=== PATIENT | female | born 1995 | race Caucasian/White ===

== ENCOUNTER 2016-03-27 17:48 | Emergency (ER) | payer SELFPAY ==
[~2016-03-27] VITALS: Ht 154.9 cm; Wt 80.7 kg
[2016-03-27 17:50] VITALS: BP 111/82; PULSE 75; RESP 16; TEMP 98.6; O2SAT 100
[2016-03-27] MEDS ORDERED: MAGICPED SWISH-SWAL (19:03)
[2016-03-27] MEDS ORDERED: HYDR-3533 PO (19:03)
[2016-03-27] MEDS ORDERED: PERI0.126 SWISH-SPIT (19:03)
[2016-03-27] MEDS ORDERED: PENI500T PO (19:03)
--- NOTE | 2016-03-27 19:09 | PD ---
HPI Chief Complaint: Oral / Dental Pain or Problem Time Seen by Provider: 19:05 Travel History International Travel<30 days: No Contact w/Intl Traveler<30days: No Traveled to known affect area: No History of Present Illness HPI Patient's 20-year-old female history of peptic ulcer disease and brain cancer in remission presenting with dental pain. She states she has "bad teeth" from radiation treatments in 2004. She's had pain and swelling in the right lower tooth last 2 days. Denies any bleeding or discharge. Denies any swelling internally with states she feels like it's on the outside of the jaw. She denies fever and chills. She denies difficulty swallowing or breathing. He denies trauma or injury to the teeth. She has used a few OTC NSAIDs and Tylenol which have helped but cannot take NSAIDs long-term. Denies any abdominal pain. She denies current . PFSH Past Medical History Cancer: Yes (Brain tumors) Chemotherapy: Yes Radiation Therapy: Yes Tetanus Vaccination: > 5 Years Influenza Vaccination: No ?: Not LMP: Never had Social History Alcohol Use: No Tobacco Use: No Substance Use: No Allergies-Medications (Allergen,Severity, Reaction): Coded Allergies: Bactrim (Verified Allergy, Severe, Rash, 03/27/16) Macrobid (Verified Adverse Reaction, Severe, "Passed out", 03/27/16) Reported Meds & Prescriptions Reported Meds & Active Scripts Active Magic Mouthwash Pediatric/Adult Liq (Lidocaine/Diphenhydr/Alum/Mg/Simeth) 60 Ml Susp 10 Ml SWISH-SWAL ACHS Each 5 mL contains: Diphenydramine 4.5 mg,Viscous Lidocaine 2% 10 mg, Maalox Advanced Regular Strength 2.7 ml (Aluminum hydroxide 108 mg, Magnesium hydroxide 108 mg and Simethicone 10.8 mg) Peridex Liq (Chlorhexidine Gluconate (Mouth) Liq) 0.12% Soln 15 Ml SWISH-SPIT BID Penicillin V Potassium 500 Mg Tab 500 Mg PO Q6H 10 Days Lortab (Hydrocodone-Acetaminophen) 5-325 Mg Tab 1 Tab PO Q6H PRN Review of Systems Except as stated in HPI: all other systems reviewed are Neg Physical Exam Narrative GENERAL: Well-developed and well-nourished adult female in no acute distress. SKIN: Warm and dry. Good turgor without tenting. HEAD: Normocephalic and atraumatic. EYES: PERRL bilaterally, 5mm. EOMI bilaterally. No injection or icterus present. No proptosis. Lids without edema or erythema. ENT: Overall poor oral dentition. Some hypertrophy and chronic erythema of the gingiva chronically per patient. Around tooth #29 and 30 there is some erythema and edema with tenderness palpation on the gingiva on the buccal side. No induration or fluctuance. The teeth are not loose but tooth #30 does have significant amount caries and tooth pieces absent. No buccal or sublingual masses. Buccal mucosa pink and moist. Oropharynx free of erythema, tonsillar hypertrophy, masses, swelling, asymmetry and exudates. Uvula midline and airway patent. NECK: Supple, no midline tenderness, crepitus or step-offs. Trachea midline, no JVD. No cervical or facial lymphadenopathy. No masses or induration palpated. CARDIOVASCULAR: Regular rate and rhythm without murmurs, rubs, clicks or gallops. RESPIRATORY: Clear to auscultation bilaterally with symmetrical rise and fall, no distress or use of accessory muscles. GASTROINTESTINAL: Non-tender, non-distended. Normal bowel sounds all 4 quadrants. No masses or organomegaly present. MUSCULOSKELETAL: No gait disturbances. Patient freely moving all four extremities spontaneously. Extremities without clubbing, cyanosis, or edema. No obvious deformities. NEUROLOGIC: CN II-XII grossly intact. Awake and alert. Motor grossly within normal limits. Normal speech. PSYCHIATRIC: Appropriate mood and affect; insight and judgment normal. Data Data Last Documented VS Vital Signs Date Time Temp Pulse Resp B/P Pulse Ox O2 Delivery O2 Flow Rate FiO2 03/27/16 17:50 98.6 75 16 111/82 100 Orders Acetamin-Hydrocod 325-7.5 Mg (Holder 7.5 (03/27/16 19:15) MDM Medical Decision Making Medical Screen Exam Complete: Yes Emergency Medical Condition: Yes Differential Diagnosis Caries versus Periapical abscess versus cellulitis versus Tooth Fracture vs less likely Ludwigs Angina Narrative Course Patient is a 20-year-old female with a history of PUD and poor dentition secondary to radiation treatments for brain tumor that is in remission presenting with history and physical suggestive of early periapical abscess. She is afebrile nontoxic appearing. No evidence of Robert's angina on exam. There is no drainable area. Patient was given Lortab here if she cannot take NSAIDs. Prescription for pen VK, Peridex mouthwash and Lortab.See discharge paperwork for further instructions. The plan was discussed with the patient who acknowledged their understanding and agreement. Reinforced the follow-up with primary care is critically important. Patient instructed on emergent conditions that should prompt return to ED. Diagnosis Primary Impression: Periapical abscess Additional Impression: Dental caries Patient Instructions: Dental Abscess (ED), Dental Caries (ED), General Instructions Additional Instructions: Take medication as directed Use salt water gargles, Orajel, or other OTC products for topical pain relief Apply ice packs hourly as needed to help with swelling and pain Schedule with dentist DAVID for definitive treatment Return to the ED for any acute worsening of symptoms Med/Other Pt SpecificInfo: Prescription(s) given Scripts Lksmavpqzwtrgmf-Ipsnbjxfs-Oso-Alum-Simeth Liq (Magic Mouthwash Pediatric/Adult Liq)60 Ml Susp10 Ml SWISH-SWAL ACHS #120 ML Each 5 mL contains: Diphenydramine 4.5 mg,Viscous Lidocaine 2% 10 mg, Maalox Advanced Regular Strength 2.7 ml (Aluminum hydroxide 108 mg, Magnesium hydroxide 108 mg and Simethicone 10.8 mg) Prov:Lashonda Hudson MD 03/27/16 Chlorhexidine Gluconate (Mouth) Liq (Peridex Liq)0.12% Soln15 Ml SWISH-SPIT BID #473 ML Prov:Lashonda Hudson MD 03/27/16 Penicillin V Potassium 500 Mg Suo700 Mg PO Q6H 10 Days Prov:Lashonda Hudson MD 03/27/16 Hydrocodone-Acetaminophen (Lortab)5-325 Mg Tab1 Tab PO Q6H PRN (PAIN) #12 TAB Ref 0 Prov:Lashonda Hudson MD 03/27/16 Disposition: 01 DISCHARGE HOME Condition: Stable Warren June III Mar 27, 2016 19:09
[2016-03-27] MEDS ORDERED: ACETAMINOPHEN/HYDROcodone 325 MG/7.5 MG TAB PO ONE (19:15)
[2016-03-27 19:41] VITALS: RESP 18
== END 2016-03-27 19:42 | disposition home or self-care (01) ==
LOC: PHEFT 17:48
DX: K04.7 Periapical abscess without sinus (principal); K02.9 Dental caries, unspecified; Z92.3 Personal history of irradiation
CPT/HCPCS: 99282

== ENCOUNTER 2016-04-08 17:26 | Emergency (ER) | payer SELFPAY ==
[~2016-04-08] VITALS: Ht 154.9 cm; Wt 77.7 kg
[~2016-04-08 17:26] MED LIST: HYDR-3533 PO; MAGICPED SWISH-SWAL; PENI500T PO; PERI0.126 SWISH-SPIT
[2016-04-08 17:35] VITALS: BP 111/76; PULSE 93; RESP 16; TEMP 98.1; O2SAT 98
--- NOTE | 2016-04-08 18:12 | PD ---
HPI Chief Complaint: Musculoskeletal Complaint Time Seen by Provider: 18:09 Travel History International Travel<30 days: No Contact w/Intl Traveler<30days: No Traveled to known affect area: No History of Present Illness HPI 20-year-old female with a past medical history of peptic ulcer disease and brain cancer in remission presents to the emergency department for evaluation of right hip pain that travels down the right leg. 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 She states that she has a history of chronic right hip pain, but it has worsened over the past 3 days. She does state that she fell, but dates that she did not injure the affected leg. She reports intermittent. Seizures to the right lower extremity. She denies any fevers or chills. No loss of bowel or bladder control. No saddle anesthesias. Patient states she cannot take anti- inflammatories her Toradol due to peptic ulcer disease. She has been taking Tylenol with little improvement at home. Her mother states that it will "lock up" and she will have trouble walking. She does report a history of a hysterectomy. PFSH Past Medical History Cancer: Yes (Brain tumors) Chemotherapy: Yes Diminished Hearing: No Gastrointestinal Disorders: Yes (ULCER) Genitourinary: Yes Reproductive: Yes Immunizations Current: Yes Radiation Therapy: Yes Tetanus Vaccination: > 5 Years Influenza Vaccination: No ?: Not LMP: NO UTERUS Past Surgical History Genitourinary Surgery: Yes (KIDNEY REFLUX) Other Surgery: Yes (BRAIN TUMOR) Social History Alcohol Use: No Tobacco Use: No Substance Use: No Allergies-Medications (Allergen,Severity, Reaction): Coded Allergies: Bactrim (Verified Allergy, Severe, Rash, 04/08/16) Macrobid (Verified Adverse Reaction, Severe, "Passed out", 04/08/16) Reported Meds & Prescriptions Reported Meds & Active Scripts Active Lortab (Hydrocodone-Acetaminophen) 5-325 Mg Tab 1 Tab PO Q6H PRN Review of Systems Except as stated in HPI: all other systems reviewed are Neg Physical Exam Narrative GENERAL: Well-developed well-nourished female patient, ambulatory. Afebrile. SKIN: Warm and dry. HEAD: Normocephalic. Atraumatic. EYES: No scleral icterus. No injection or drainage. NECK: Supple, trachea midline. No JVD or lymphadenopathy. CARDIOVASCULAR: Regular rate and rhythm without murmurs, gallops, or rubs. Right pedal pulse 2+. Capillary refill less than 2 seconds to the digits of the right foot. RESPIRATORY: Breath sounds equal bilaterally. No accessory muscle use. Lungs sounds are clear to auscultation. GASTROINTESTINAL: Abdomen soft, non-tender, nondistended. MUSCULOSKELETAL: No cyanosis, or edema. Patient has tenderness over right lateral hip. She has pain with flexion of the right hip. No swelling noted. BACK: Nontender without obvious deformity. No CVA tenderness. No midline spinal tenderness. Data Data Last Documented VS Vital Signs Date Time Temp Pulse Resp B/P Pulse Ox O2 Delivery O2 Flow Rate FiO2 04/08/16 17:35 98.1 93 16 111/76 98 Orders Hip, Uni(Ap&Lat) W Ap Pelvis (04/08/16 ) Orphenadrine Inj (Norflex Inj) (04/08/16 18:15) Acetamin-Hydrocod 325-5 Mg ([place] 5-325 (04/08/16 18:15) MDM Medical Decision Making Medical Screen Exam Complete: Yes Emergency Medical Condition: Yes Medical Record Reviewed: Yes Interpretation(s) Last Impressions Hip and Pelvis X-Ray 04/08/16 0000 Signed Impressions: Service Date/Time: Friday, April 08, 2016 18:20 - CONCLUSION: 1. Post surgical changes with lag-type screws in both femoral heads and necks. 2. No underlying bony abnormality. Jose Elias Arriaga MD Differential Diagnosis Sciatica versus chronic hip pain versus unlikely fracture or dislocation Narrative Course 20-year-old female with a history of chronic hip pain and pins in her right hip presents to the emergency department for 3 day history of worsening right hip pain that radiates down the right leg. X-ray of the right hip with pelvis is ordered and pending. Patient is given Lortab 5/325 mg for pain and Norflex 60 mg IM. X-ray of the right hip with pelvis shows 1. Post surgical changes with lag-type screws in both femoral heads and necks; 2. No underlying bony abnormality. Patient states that improvement with Lortab and Norflex is decreased from a 6 to a 2 out of 10. Patient will be discharged a short-term prescription for Lortab and Robaxin. She is encouraged to follow up with her orthopedist. She is agreeable to this plan. Diagnosis Primary Impression: Sciatica of right side Referrals: Orthopedist Primary Care Physician Patient Instructions: General Instructions, Sciatica (ED) Additional Instructions: Take Lortab as instructed as needed for pain. Caution this can make you drowsy do not drive after taking. Take Robaxin as directed as needed. Heating pad on low for 20 minutes 4-5 times daily. Follow-up with your primary care physician. Return to the emergency department for any acute worsening of symptoms. Med/Other Pt SpecificInfo: Prescription(s) given Scripts Methocarbamol (Robaxin)750 Mg [id number] Mg PO TID PRN (MUSCLE SPASM) #21 TAB Ref 0 Prov:Aurora Alfaro 04/08/16 Hydrocodone-Acetaminophen (Lortab)5-325 Mg Tab1 Tab PO Q6H PRN (PAIN) #16 TAB Ref 0 Prov:Chivo Sexton MD 04/08/16 Disposition: 01 DISCHARGE HOME Condition: Stable Aurora Alfaro Apr 08, 2016 18:12
[2016-04-08] MEDS ORDERED: ORPHENADRINE INJ 60 MG/2 ML AMP IM ONE (18:15)
[2016-04-08] MEDS ORDERED: ACETAMINOPHEN/HYDROcodone 325 MG/5 MG TAB PO ONE (18:15)
--- NOTE | 2016-04-08 18:44 | RADHPO ---
EXAM DATE/TIME: 04/08/2016 18:20 [facility] COMPARISON: No previous studies available for comparison. INDICATIONS : Right leg pain and swelling. MEDICAL HISTORY : None. SURGICAL HISTORY : Pins in bilateral hips. ENCOUNTER: Initial ACUITY: 3 days PAIN SCORE: 5/10 LOCATION: Right hip FINDINGS: Examination of the right hip was performed with AP Pelvis. The primary and secondary trabecular oriana farnaz of the femoral neck is intact. There are lag type screws noted in both femoral heads and necks. The hip joint is of normal width without significant sclerosis or bony hypertrophy. The acetabulum i s grossly intact. CONCLUSION: 1. Post surgical changes with lag-type screws in both femoral heads and necks. 2. No underlying bony abnormality. Jose Elias Arriaga MD on April 08, 2016 at 18:41 Board Certified Radiologist. This report was verified electronically.
[2016-04-08] MEDS ORDERED: HYDR-3533 PO (18:52)
[2016-04-08] MEDS ORDERED: ROBA750T PO (18:55)
== END 2016-04-08 19:01 | disposition home or self-care (01) ==
LOC: PHEFT 17:26
DX: M54.31 Sciatica, right side (principal); D49.9 Neoplasm of unspecified behavior of unspecified site; K27.9 Peptic ulcer, site unspecified, unspecified as acute or chronic, without hemorrhage or perforation
CPT/HCPCS: 73502; 96372; 99283; J2360

== ENCOUNTER 2016-04-22 18:23 | Emergency (ER) | payer SELFPAY ==
[~2016-04-22] VITALS: Ht 154.9 cm; Wt 78.0 kg
[~2016-04-22 18:23] MED LIST changes: -MAGICPED SWISH-SWAL; -PENI500T PO; -PERI0.126 SWISH-SPIT; +ROBA750T PO
[2016-04-22 18:29] VITALS: BP 125/87; PULSE 119; RESP 17; TEMP 98.8; O2SAT 95
--- NOTE | 2016-04-22 19:08 | PD ---
HPI Chief Complaint: Musculoskeletal Complaint Time Seen by Provider: 18:53 Travel History International Travel<30 days: No Contact w/Intl Traveler<30days: No Traveled to known affect area: No History of Present Illness HPI Patient is a 20-year-old female who presents emergency department for evaluation of right foot pain. Pain is been ongoing for several weeks, if not longer. The pain is localized to the medial aspect of the left foot. Patient denies any injury or trauma but states she did fall a few weeks ago injuring her right hip and was evaluated in the emergency department for that injury. The pain occurs intermittently, at rest and with activity. Denies any redness, swelling, fevers, chills. PFSH Past Medical History Cancer: Yes (Brain tumors at age 7 and 9) Chemotherapy: Yes Diminished Hearing: No Gastrointestinal Disorders: Yes (peptic ulcer disease) Genitourinary: Yes (kidney reflux as a child) Immunizations Current: Yes Radiation Therapy: Yes ?: Not LMP: STATES BORN WITHOUT UTERUS Past Surgical History Genitourinary Surgery: Yes (KIDNEY REFLUX) Hysterectomy: Yes Other Surgery: Yes (BRAIN TUMOR) Social History Alcohol Use: No Tobacco Use: No Substance Use: No Allergies-Medications (Allergen,Severity, Reaction): Coded Allergies: Bactrim (Verified Allergy, Severe, Rash, 04/22/16) Macrobid (Verified Adverse Reaction, Severe, "Passed out", 04/22/16) Reported Meds & Prescriptions Reported Meds & Active Scripts Active Robaxin (Methocarbamol) 750 Mg Tab 750 Mg PO TID PRN Lortab (Hydrocodone-Acetaminophen) 5-325 Mg Tab 1 Tab PO Q6H PRN Review of Systems Except as stated in HPI: all other systems reviewed are Neg Musculoskeletal: Positive: Myalgias, Pain Physical Exam Narrative GENERAL: Well-nourished, well-developed patient. SKIN: Warm and dry. HEAD: Normocephalic. EYES: No scleral icterus. No injection or drainage. NECK: Supple, trachea midline. No JVD or lymphadenopathy. CARDIOVASCULAR: Regular rate and rhythm without murmurs, gallops, or rubs. RESPIRATORY: Breath sounds equal bilaterally. No accessory muscle use. GASTROINTESTINAL: Abdomen soft, non-tender, nondistended. MUSCULOSKELETAL: No cyanosis, or edema. Mild tenderness noted over the medial aspect of the midfoot. Flat arch. No obvious deformities noted otherwise. Positive pedal pulses, brisk less than 3 second capillary refill. BACK: Nontender without obvious deformity. No CVA tenderness. Data Data Last Documented VS Vital Signs Date Time Temp Pulse Resp B/P Pulse Ox O2 Delivery O2 Flow Rate FiO2 04/22/16 18:29 98.8 119 17 125/87 95 Orders Foot, Complete (Qzk1azs) (04/22/16 ) Acetaminophen (Tylenol) (04/22/16 19:15) MDM Medical Decision Making Medical Screen Exam Complete: Yes Emergency Medical Condition: Yes Interpretation(s) Vital Signs Date Time Temp Pulse Resp B/P Pulse Ox O2 Delivery O2 Flow Rate FiO2 04/22/16 18:29 98.8 119 17 125/87 95 Differential Diagnosis Pes planus versus arthritis versus strain versus sprain versus other Narrative Course Patient is a 20-year-old female presenting to the department for evaluation of right foot pain. There was no injury specifically to the foot. Patient was seen and evaluated twice in the emergency department on March 27 and the . On the she presented with complaint of right hip pain, stating that she fell. She states that at that time the foot was not evaluated. Imaging of the right foot is negative for acute abnormality. There is flattening of the arch on both feet. Patient was encouraged to obtain supportive insoles, and wear supportive shoes. She is currently wearing flip-flops which provided little support. She was encouraged to follow-up with a production staff worker or her primary doctor for ongoing evaluation and management. She can take acetaminophen as needed and as directed for pain. Patient can alternate heat and ice to the affected area. She can also apply topical analgesics to the area. Patient is encouraged to return to emergency department for any new or worsening symptoms. Patient is stable for discharge. Diagnosis Primary Impression: Foot pain Qualified Code: M79.671 - Right foot pain Referrals: Electrical Project Engineer Primary Care Physician Patient Instructions: General Instructions Additional Instructions: Follow-up with her primary doctor Follow-up with a production staff worker Alternate heat and ice the affected area Take acetaminophen as needed as directed for pain You can trial [id number] topical therapies such as BenGay or Biofreeze Obtain supportive insoles for your shoes Wear shoes that have arch support. Med/Other Pt SpecificInfo: No Change to Meds Disposition: 01 DISCHARGE HOME Condition: Stable Cher Graves Apr 22, 2016 19:08
[2016-04-22] MEDS ORDERED: ACETAMINOPHEN 500 MG CPLT PO ONE (19:15)
--- NOTE | 2016-04-22 19:23 | RADHPO ---
EXAM DATE/TIME: 04/22/2016 18:53 [facility] COMPARISON: No previous studies available for comparison. INDICATIONS : Right foot pain from unknown injury. MEDICAL HISTORY : None. SURGICAL HISTORY : None. ENCOUNTER: Initial ACUITY: 3 weeks PAIN SCORE: 6/10 LOCATION: Right medial foot FINDINGS: Three view examination of the right foot demonstrates no soft tissue swelling, dislocation, or fractu re. The tarsal bones appear intact. The interphalangeal and metatarsophalangeal joints are intact. The calcaneus is intact. Bony mineralization is normal. CONCLUSION: Unremarkable examination of the right foot. Miguel Cagle MD on April 22, 2016 at 19:21 Board Certified Radiologist. This report was verified electronically.
== END 2016-04-22 19:53 | disposition home or self-care (01) ==
LOC: PHEFT 18:23
DX: M79.671 Pain in right foot (principal)
CPT/HCPCS: 73630; 99283